=== PATIENT | female | born 1985 | race Caucasian/White ===

== ENCOUNTER 2020-01-13 13:45 | Emergency (ER) | payer BC ==
[~2020-01-13] VITALS: Ht 162.6 cm; Wt 86.3 kg
[2020-01-13 17:11] LABS: BASO # 0.1 x10^3/uL (0.0-0.2); BASO % 1 % (0-3); EOS # 0.1 x10^3/uL (0.0-0.7); EOS % 1 % (0-3); HEMATOCRIT 39.4 % (36.0-47.0); HEMOGLOBIN 13.5 g/dL (12.0-15.5); LYMPH # 1.4 x10^3/uL (1.0-4.8); LYMPH % 20 % (24-48); MEAN CORPUSCULAR HEMOGLOBIN 36 pg (25-35); MEAN CORPUSCULAR HGB CONC 34 g/dL (31-37); MEAN CORPUSCULAR VOLUME 104 fL (79-100); MONO # 0.4 x10^3/uL (0.0-1.1); MONO % 5 % (0-9); NEUT # 5.1 x10^3/uL (1.8-7.7); NEUT % 72 % (31-73); PLATELET COUNT 314 x10^3/uL (140-400); RED BLOOD COUNT 3.78 x10^6/uL (3.50-5.40); RED CELL DISTRIBUTION WIDTH 15.6 % (11.5-14.5); WHITE BLOOD COUNT 7.1 x10^3/uL (4.0-11.0)
[2020-01-13 17:21] LABS: PROTHROMBIN TIME PATIENT 13.5 SEC (11.7-14.0)
[2020-01-13 17:30] LABS: CALCIUM 8.9 mg/dL (8.5-10.1); CREATININE 0.8 mg/dL (0.6-1.0); GFR 81.6; POTASSIUM 3.1 mmol/L (3.5-5.1)
[2020-01-13 17:36] LABS: ALBUMIN 3.5 g/dL (3.4-5.0); TOTAL BILIRUBIN 0.5 mg/dL (0.2-1.0); TOTAL PROTEIN 6.9 g/dL (6.4-8.2)
--- NOTE | 2020-01-13 17:58 | PHYS DOC ---
Past Medical History Past Medical History: Fibromyalgia, Gallstones (CLAUDIA MEZA MD) Past Surgical History: Cholecystectomy (CLAUDIA MEZA MD) Smoking Status: Current Every Day Smoker Alcohol Use: Occasionally (CLAUDIA MEZA MD) Adult General Chief Complaint Chief Complaint: ABDOMINAL PAIN HPI HPI Patient is a 34 year old female with history of myalgia, pancreatitis status post cholecystectomy who presents with complaints of abdominal pain. Patient complaining of epigastric pain since yesterday as a constant pain with radiation to shoulder blade as a sharp pain and rated her pain 10 over 10. Patient complaining of 9 episodes of nonbloody vomiting and more than 20 episodes of nonbloody diarrhea since yesterday. Patient states she had history of pancreatitis with the same pain that resolved after cholecystectomy 5 years ago. Patient states she had 3 shots of hard liquor yesterday but does not drink frequently. Patient denies chest pain, shortness of breath, urinary symptoms, , sick contact. (CLAUDIA MEZA MD) Review of Systems Review of Systems Constitutional: Denies fever or chills [] Eyes: Denies change in visual acuity, redness, or eye pain [] HENT: Denies nasal congestion or sore throat [] Respiratory: Denies cough or shortness of breath [] Cardiovascular: No additional information not addressed in HPI [] GI: Reports abdominal pain, nausea, vomiting, diarrhea [] : Denies dysuria or hematuria [] Musculoskeletal: Denies back pain or joint pain [] Integument: Denies rash or skin lesions [] Neurologic: Denies headache, focal weakness or sensory changes [] Endocrine: Denies polyuria or polydipsia [] All other systems were reviewed and found to be within normal limits, except as documented in this note. (CLAUDIA MEZA MD) Current Medications Current Medications Current Medications Medications (Trade) Dose Ordered Sig/Zhang Start Time Stop Time Status Last Admin Dose Admin Fentanyl Citrate (Fentanyl 2ml Vial) 50 mcg 1X ONCE 01/13/20 17:00 01/13/20 17:49 DC 01/13/20 18:19 50 MCG Info (CONTRAST GIVEN -- Rx MONITORING) 1 each PRN DAILY PRN 01/13/20 18:00 01/15/20 17:59 Iohexol (Omnipaque 300 Mg/ml) 75 ml 1X ONCE 01/13/20 18:00 01/13/20 18:01 DC 01/13/20 18:00 75 ML Ondansetron HCl (Zofran) 4 mg 1X ONCE 01/13/20 17:00 01/13/20 17:49 DC 01/13/20 18:18 4 MG Sodium Chloride 1,000 ml @ 1,000 mls/hr Q1H 01/13/20 16:58 01/13/20 17:57 DC 01/13/20 18:20 1,000 MLS/HR (CALLUM ROMAN Jamarcus ) Allergies Allergies Allergies Coded Allergies Type Severity Reaction Last Updated Verified Penicillins Allergy Intermediate 01/13/20 Yes desvenlafaxine Allergy Intermediate 01/13/20 Yes morphine Allergy Intermediate 01/13/20 Yes (CALLUM ROMAN DO) Physical Exam Physical Exam Constitutional: Well developed, well nourished, mild distress, non-toxic appearance. [] HENT: Normocephalic, atraumatic. Eyes: PERRLA, EOMI, conjunctiva normal, no discharge. [] Neck: Normal range of motion, no tenderness, supple, no stridor. [] Cardiovascular:Heart rate regular rhythm, no murmur [] Lungs & Thorax: Bilateral breath sounds clear to auscultation [] Abdomen: Bowel sounds normal, soft, epigastric guarding, no tenderness, no masses, no pulsatile masses. [] Skin: Warm, dry, no erythema, no rash. [] Back: No tenderness, no CVA tenderness. [] Extremities: No tenderness, no cyanosis, no clubbing, ROM intact, no edema. [] Neurologic: Alert and oriented X 3, no focal deficits noted. [] Psychologic: Affect anxious, judgement normal, mood normal. [] (CLAUDIA MEZA MD) Current Patient Data Vital Signs Vital Signs Date Time Temp Pulse Resp B/P (MAP) Pulse Ox O2 Delivery O2 Flow Rate FiO2 01/13/20 18:41 76 18 139/82 (101) 97 Room Air 01/13/20 16:02 98.0 98.0 (CALLUM ROMAN DO) Lab Values Laboratory Tests Test 01/13/20 16:30 01/13/20 17:00 Urine Collection Type Unknown Urine Color Yellow Urine Clarity Clear Urine pH 6.0 Urine Specific [place] 1.020 Urine Protein Negative mg/dL (NEG-TRACE) Urine Glucose (UA) Negative mg/dL (NEG) Urine Ketones (Stick) Trace mg/dL (NEG) Urine Blood Negative (NEG) Urine Nitrite Negative (NEG) Urine Bilirubin Negative (NEG) Urine Urobilinogen Dipstick 0.2 mg/dL (0.2 mg/dL) Urine Leukocyte Esterase Negative (NEG) Urine RBC 3-5 /HPF (0-2) Urine WBC 1-4 /HPF (0-4) Urine Squamous Epithelial Cells Mod /LPF Urine Bacteria Few /HPF (0-FEW) Urine Mucus Marked /LPF POC Urine HCG, Qualitative Hcg negative (Negative) Urine Opiates Screen Neg (NEG) Urine Methadone Screen Neg (NEG) Urine Barbiturates Neg (NEG) Urine Phencyclidine Screen Neg (NEG) Urine Amphetamine/Methamphetamine Neg (NEG) Urine Benzodiazepines Screen Neg (NEG) Urine Cocaine Screen Neg (NEG) Urine Cannabinoids Screen Pos (NEG) Urine Ethyl Alcohol Neg (NEG) White Blood Count 7.1 x10^3/uL (4.0-11.0) Red Blood Count 3.78 x10^6/uL (3.50-5.40) Hemoglobin 13.5 g/dL (12.0-15.5) Hematocrit 39.4 % (36.0-47.0) Mean Corpuscular Volume 104 fL (79-100) H Mean Corpuscular Hemoglobin 36 pg (25-35) H Mean Corpuscular Hemoglobin Concent 34 g/dL (31-37) Red Cell Distribution Width 15.6 % (11.5-14.5) H Platelet Count 314 x10^3/uL (140-400) Neutrophils (%) (Auto) 72 % (31-73) Lymphocytes (%) (Auto) 20 % (24-48) L Monocytes (%) (Auto) 5 % (0-9) Eosinophils (%) (Auto) 1 % (0-3) Basophils (%) (Auto) 1 % (0-3) Neutrophils # (Auto) 5.1 x10^3/uL (1.8-7.7) Lymphocytes # (Auto) 1.4 x10^3/uL (1.0-4.8) Monocytes # (Auto) 0.4 x10^3/uL (0.0-1.1) Eosinophils # (Auto) 0.1 x10^3/uL (0.0-0.7) Basophils # (Auto) 0.1 x10^3/uL (0.0-0.2) Prothrombin Time 13.5 SEC (11.7-14.0) Prothrombin Time INR 1.1 (0.8-1.1) Activated Partial Thromboplast Time 25 SEC (24-38) Sodium Level 143 mmol/L (136-145) Potassium Level 3.1 mmol/L (3.5-5.1) L Chloride Level 104 mmol/L (98-107) Carbon Dioxide Level 26 mmol/L (21-32) Anion Gap 13 (6-14) Blood Urea Nitrogen 5 mg/dL (7-20) L Creatinine 0.8 mg/dL (0.6-1.0) Estimated GFR (Cockcroft-Gault) 81.6 BUN/Creatinine Ratio 6 (6-20) Glucose Level 102 mg/dL (70-99) H Calcium Level 8.9 mg/dL (8.5-10.1) Total Bilirubin 0.5 mg/dL (0.2-1.0) Aspartate Amino Transferase (AST) 21 U/L (15-37) Alanine Aminotransferase (ALT) 17 U/L (14-59) Alkaline Phosphatase 87 U/L (46-116) Creatine Kinase 81 U/L (26-192) Total Protein 6.9 g/dL (6.4-8.2) Albumin 3.5 g/dL (3.4-5.0) Albumin/Globulin Ratio 1.0 (1.0-1.7) Lipase 76 U/L (73-393) Laboratory Tests 01/13/20 17:00 Laboratory Tests 01/13/20 17:00 (CALLUM ROMAN DO) EKG EKG [] (CLAUDIA MEZA MD) Radiology/Procedures Radiology/Procedures [] (CLAUDIA MEZA MD) Course & Med Decision Making Course & Med Decision Making Pertinent Labs and Imaging studies are pending. Evaluation of patient in ER showed 34-year-old female patient with complaining of abdominal pain and nausea and vomiting and diarrhea since yesterday. Patient had epigastric guarding without abdominal tenderness. Patient was treated with IV fluid, Zofran, fentanyl. Labs and CT abdomen and pelvis is pending. Sign out given to at 1800 for further evaluation and final disposition. Discussed current findings and plan with patient and family, who acknowledge understanding and agreement. (CLAUDIA MEZA MD) Dragon Disclaimer Dragon Disclaimer This electronic medical record was generated, in whole or in part, using a voice recognition dictation system. (CLAUDIA MEZA MD) Departure Departure Impression: Primary Impression: Abdominal pain Additional Impressions: Acute gastroenteritis Hypokalemia Disposition: HOME, SELF-CARE Referrals: MONICA PETERS (PCP) Patient Instructions: Hypokalemia, Viral Gastroenteritis Scripts Potassium Chloride (POTASSIUM CHLORIDE ) 20 Meq Tablet.er 20 MEQ PO DAILY for SUPPLEMENT for 7 Days, #7 TAB.SR Prov: CALLUM ROMAN DO 01/13/20 Tramadol Hcl (ULTRAM) 50 Mg Tablet 1 TAB PO PRN Q6HRS PRN for pain MDD 4 Tablet(s) for 7 Days, #28 TAB 0 Refills Prov: CALLUM ROMAN DO 01/13/20 Ondansetron Hcl (ZOFRAN) 4 Mg Tablet 1 TAB PO Q6HRS, #20 TAB Prov: CALLUM ROMAN DO 01/13/20 Problem Qualifiers Primary Impression: Abdominal pain Abdominal location: epigastric Qualified Codes: R10.13 - Epigastric pain CLAUDIA MEZA MD Jan 13, 2020 17:58 CALLUM ROMAN DO Jan 13, 2020 19:26
[2020-01-13] MEDS ORDERED: CONTRAST GIVEN. MC PRN (18:00)
[2020-01-13] MEDS: IOHEXOL 300 MG/ML 100ML VIAL. IV ONE (18:00)
[2020-01-13] MEDS: ONDANSETRON PF 4 MG/2 ML VIAL. IV ONE (18:18)
[2020-01-13 18:19] LABS: BILIRUBIN,URINE NEGATIVE (NEG); CLARITY,URINE CLEAR; COLOR,URINE YELLOW; NITRITE,URINE NEGATIVE (NEG); PROTEIN,URINE NEGATIVE (NEG-TRACE); UROBILINOGEN,URINE 0.2 mg/dL (0.2 mg/dL)
[2020-01-13] MEDS: fentaNYL PF VIAL 100 MCG/2 ML VIAL IV ONE (18:19)
[2020-01-13] MEDS: IV NORMAL SALINE 1000ML BAG 1,000 ML IV SCH (18:20)
[2020-01-13 18:29] LABS: BARBITURATES NEG (NEG); BENZODIAZEPINES NEG (NEG); CANNABINOIDS POS (NEG); COCAINE NEG (NEG); METHADONE NEG (NEG); OPIATES NEG (NEG); PHENCYCLIDINE NEG (NEG)
[2020-01-13 18:32] LABS: AMPHETAMINE/METHAMPHETAMINE NEG (NEG)
[2020-01-13 18:33] LABS: BACTERIA,URINE FEW /HPF (0-FEW); SQUAMOUS EPITHELIAL CELL,UR MOD /LPF
[2020-01-13 18:41] VITALS: BP 139/82
--- NOTE | 2020-01-13 18:55 | RAD ---
Exam: CT abdomen and pelvis with contrast INDICATION: Abdominal pain TECHNIQUE: Sequential axial images through the abdomen and pelvis obtained following the administration of 75 mL of Omni 300 IV contrast. Sagittal and coronal reformatted images were reconstructed from the axial data and reviewed. Comparisons: None FINDINGS: Heart size is normal. No pericardial effusion. Visualized lung bases are clear. No pleural effusion. Liver, spleen, pancreas, and adrenals are unremarkable. Gallbladder is absent. Kidneys demonstrate symmetric enhancement. No perinephric inflammation or hydronephrosis. No renal or ureteral calculi. Bladder is decompressed not well evaluated. Uterus is not enlarged. Wall thickening involving the distal small bowel with adjacent fat stranding is noted.. The remainder of the large and small bowel are unremarkable. No free intra-abdominal air. There is trace free fluid in the pelvis. No obstruction. Abdominal aorta has a normal course and caliber. Abdominal vasculature is patent. No enlarged abdominal lymph nodes are identified. No suspicious osseous lesions or acute fractures. IMPRESSION: Wall thickening of the distal small bowel with adjacent fat stranding. Findings are favored represent a severe enteritis. May be infectious or inflammatory in etiology. No evidence for obstruction Exposure: One or more of the following in the visualized dose reduction techniques were utilized for this examination: 1. Automated exposure control 2. Adjustment of the MA and/or KV according to patient size 3. Use of iterative of reconstructive technique Electronically signed by: Ousmane Bangura MD (01/13/2020 6:52 PM) [id number]
[2020-01-13] MEDS ORDERED: TRAM-48 PO (19:26)
[2020-01-13] MEDS ORDERED: POTA20TA4 PO (19:26)
[2020-01-13] MEDS ORDERED: ONDA4TAB7 PO (19:26)
[2020-01-13] MEDS: KETOROLAC 30 MG/ML VIAL. IVP ONE (19:41)
== END 2020-01-13 19:57 | disposition home or self-care (01) ==
LOC: ER 13:45
DX: K52.89 Other specified noninfective gastroenteritis and colitis (principal); E87.6 Hypokalemia; R10.13 Epigastric pain; R11.2 Nausea with vomiting, unspecified; R19.7 Diarrhea, unspecified; M79.7 Fibromyalgia; F17.200 Nicotine dependence, unspecified, uncomplicated; Z87.442 Personal history of urinary calculi; Z90.49 Acquired absence of other specified parts of digestive tract; Z88.0 Allergy status to penicillin; Z88.6 Allergy status to analgesic agent; Z88.2 Allergy status to sulfonamides
CPT/HCPCS: 36415; 74177; 80053; 80307; 81001; 81025; 82550; 83690; 85025; 85610; 85730; 96361; 96374; 96375; 99285; J1885; J2405; J3010; J7030; Q9967